=== PATIENT | female | born 1935 | race Caucasian/White ===

== ENCOUNTER 2021-05-18 22:16 | Inpatient (IN) | payer MEDICARE ==
[~2021-05-18] VITALS: Ht 170.2 cm; Wt 42.6 kg
--- NOTE | 2021-05-19 00:05 | NUR ---
pt repeatedly tries to get Addendum: 05/19/21 at 0005 by JANIYA pt repeatedly attempts to leave the room. currently has sitter at bedside.
--- NOTE | 2021-05-19 00:09 | NUR ---
Susanna (caregiver) phone# [phone]
[2021-05-19] MEDS ORDERED: FURO20TA4 PO (00:10)
[2021-05-19] MEDS ORDERED: DONE10TA44 PO (00:11)
[2021-05-19] MEDS ORDERED: LOSA100T31 PO (00:13)
[2021-05-19] MEDS ORDERED: POTA10CA43 PO (00:15)
[2021-05-19] MEDS ORDERED: VIACTIV SOFT C1 EACH PO (00:15)
[2021-05-19] MEDS ORDERED: METO-356 PO (00:15)
[2021-05-19] MEDS ORDERED: OLANZAPINE 5 MG TABLET PO ONE (00:45)
[2021-05-19] MEDS ORDERED: LORAZEPAM 0.5 MG TABLET PO ONE (00:45)
--- NOTE | 2021-05-19 01:32 | NUR ---
Report given to Emely RN MHU.
[2021-05-19 01:50] VITALS: BP 164/100
[2021-05-19] MEDS ORDERED: MAGNESIUM HYDROXIDE 30 ML LIQUID UDC PO PRN (02:15)
[2021-05-19] MEDS ORDERED: ACETAMINOPHEN 325 MG TABLET PO PRN (02:15)
[2021-05-19] MEDS ORDERED: MAG HYDROX/AL HYDROX/SIMETH 30 ML LIQUID UDC PO PRN (02:15)
[2021-05-19] MEDS ORDERED: BLOOD SUGAR DIAGNOSTIC 1 EACH STRIP VI ONE (02:15)
[2021-05-19] MEDS: LORAZEPAM 0.5 MG TABLET PO PRN (04:01)
--- NOTE | 2021-05-19 05:17 | NUR ---
GPS ADMISSION NOTES: Admitted patient to U, via gurney from ER with ER Nurse and pradeep, patient on 5150 d/t gravely disable and danger to other. As per report patient living with a caregiver at home, patient is said to be aggressive towards the caregiver, wanders around, and getting worst Addendum: 05/19/21 at 0532 by ANGEL PARSONS RN GPS ADMISSION NOTE continued: recently, Patient is diagnose with dementia. Face to face evaluation done, Patient A&0x1, appears confuse and unable to answer initial assessments questions. Patient looking for her "DOG". Patient oriented in the unit, but unable to comprehend d/t cognitive impairment. Patient skin intact. No respiratory distress noted. Patient transfer to bed, safety strategies left in place. Patient rights handbook with advisement given to patient.
--- NOTE | 2021-05-19 05:33 | NUR ---
GPS NOTES: THOUGHT DISORDER: @0230A patient got out of bed, patient made a statement "that door, there's a lot of them in there", oriented patient to reality and re-assure patient to be in a safe environment, patient starts to wander out in the hallway, going in and out of the room, patient looking for her "dog", redirect patient to a safe space, patient tends to be aggressive when being redirected and unable to follow commands and continue to wander around. Safety strategies left in palace. Stand by assistance. Ativan given as ordered d/t anxiety and restlessness. offered snack to patient w/c she complied. @330A ativan effective as patient appears to calm and sleeping at this time.
[2021-05-19 07:33] VITALS: BP 150/64
[2021-05-19] MEDS: OLANZAPINE 2.5 MG TABLET PO SCH ×2 (12:45→17:22)
[2021-05-19 13:00] VITALS: BP 138/81
[2021-05-19 20:00] VITALS: BP 140/76
[2021-05-19] MEDS: DIVALPROEX SPRINKLE 125 MG CAP.SPRINK PO SCH (20:19)
[2021-05-19] MEDS: TEMAZEPAM 7.5 MG CAPSULE PO PRN (21:52)
--- NOTE | 2021-05-19 22:42 | NUR ---
Patient received in macrello-chair next to nursing station. Patient A/O x1.Patient requires constant redirection, complaint with medication with prompting rendered. Patient in no apparent distress will continue to monitor.Patient confused, disoriented with poor insight. Patient can be combative during care. Safety precautions in place.
[2021-05-20 07:30] VITALS: BP 166/61
[2021-05-20 08:11] LABS: BILIRUBIN,TOTAL 0.6 mg/dL (0.2-1.0); CREATININE 0.8 mg/dL (0.6-1.3); MAGNESIUM 2.5 mg/dL (1.8-2.4); POTASSIUM 4.9 mmol/L (3.5-5.1); TOTAL PROTEIN, SERUM 7.4 g/dL (6.4-8.2)
[2021-05-20 08:23] LABS: HEMATOCRIT 44.8 % (31.2-41.9); MEAN CORPUSCULAR HEMOGLOBIN 32.6 uug (24.7-32.8); MEAN CORPUSCULAR VOLUME 96.8 fL (75.5-95.3); PLATELET COUNT (AUTO) 254 K/uL (179-408)
[2021-05-20] MEDS ORDERED: VIT K PO SCH (09:00)
[2021-05-20] MEDS ORDERED: CA CARBONATE PO SCH (09:00)
[2021-05-20] MEDS ORDERED: [UNRECOGNIZED DRUG - OTHER] PO SCH (09:00)
[2021-05-20] MEDS ORDERED: VITAMIN D3 PO SCH (09:00)
[2021-05-20] MEDS ORDERED: Medication Not On Formulary EA (Losartan Potassium 1 TAB) PO SCH (09:00)
[2021-05-20 09:11] LABS: THYROID STIMULATING HORMONE 1.381 mIU/mL (0.358-3.740)
[2021-05-20] MEDS: DIVALPROEX SPRINKLE 125 MG CAP.SPRINK PO SCH ×3 (09:22→20:19)
[2021-05-20] MEDS: OLANZAPINE 2.5 MG TABLET PO SCH ×2 (09:22→16:19)
[2021-05-20] MEDS: FUROSEMIDE 20 MG TABLET PO SCH (09:23)
[2021-05-20] MEDS: CALCIUM CARB/VITAMIN D 600-400 MG TABLET PO SCH (09:23)
[2021-05-20] MEDS: METOPROLOL SUCCINATE XL 25 MG TAB.SR.24H PO SCH (09:23)
[2021-05-20] MEDS: POTASSIUM CHLORIDE 10 MEQ TAB.PRT.SR PO SCH (09:23)
[2021-05-20] MEDS: LOSARTAN POTASSIUM 50 MG TABLET PO SCH (09:24)
--- NOTE | 2021-05-20 10:40 | NUR ---
KIKE Initial Discharge Note: Pt is admitted to [facility] from [facility] on a 5150 hold for a danger to others and gravely disabled adult. Pt currently resides at [address] [place] [address] [place] [address]. KIKE contacted pt's daughter, Angelique [phone] and left a voicemail for a call back to discuss discharge plan. KIKE will continue to work with pt, family and MD to ensure a safe and proper discharge plan.
--- NOTE | 2021-05-20 10:41 | NUR ---
KIKE Admit Source: Pt is admitted to [facility] from [facility] on a 5150 hold for a danger to others and gravely disabled adult. Pt currently resides at [address] [place] [address] [place] [address]. KIKE contacted pt's daughter, Angelique [phone] and left a voicemail for a call back to discuss discharge plan. KKIE will continue to work with pt, family and MD to ensure a safe and proper discharge plan.
--- NOTE | 2021-05-20 10:43 | NUR ---
Firearms Report: Silverlight Developer completed and submitted a [employer] firearms report for 5150 a danger to others and grave disability certifications. A copy of report has been placed in patient chart.
[2021-05-20] MEDS: ENSURE ENLIVE (VAN) 240 ML LIQUID PO SCH ×2 (13:00→16:25)
[2021-05-20 15:41] VITALS: BP 109/62
[2021-05-20 20:03] VITALS: BP 129/67
[2021-05-20 20:04] VITALS: BP 129/67
[2021-05-20] MEDS: LORAZEPAM 0.5 MG TABLET PO PRN (20:20)
[2021-05-20] MEDS: TEMAZEPAM 7.5 MG CAPSULE PO PRN (22:57)
[2021-05-21 07:30] VITALS: BP 131/82
[2021-05-21] MEDS: FUROSEMIDE 20 MG TABLET PO SCH (09:56)
[2021-05-21] MEDS: DIVALPROEX SPRINKLE 125 MG CAP.SPRINK PO SCH ×3 (09:56→20:23)
[2021-05-21] MEDS: POTASSIUM CHLORIDE 10 MEQ TAB.PRT.SR PO SCH (09:56)
[2021-05-21] MEDS: LOSARTAN POTASSIUM 50 MG TABLET PO SCH (09:58)
[2021-05-21] MEDS: CALCIUM CARB/VITAMIN D 600-400 MG TABLET PO SCH (09:58)
[2021-05-21] MEDS: ENSURE ENLIVE (VAN) 240 ML LIQUID PO SCH ×3 (09:59→17:59)
[2021-05-21] MEDS: OLANZAPINE 2.5 MG TABLET PO SCH ×2 (09:59→17:59)
[2021-05-21] MEDS: METOPROLOL SUCCINATE XL 25 MG TAB.SR.24H PO SCH (10:02)
--- NOTE | 2021-05-21 14:47 | NUR ---
Gps/Applications Intern- Stayed up in her marcello-chair by the Nurses station , encouraged fluids, poor intake , encouraged to eat . Confused, difficulty with her processing , talking incoherently .Safety continue to emphasized.
[2021-05-21] MEDS: LORAZEPAM 0.5 MG TABLET PO PRN ×2 (15:55→20:23)
[2021-05-21 16:00] VITALS: BP 129/104
[2021-05-21 20:00] VITALS: BP 123/72
[2021-05-21] MEDS: TEMAZEPAM 7.5 MG CAPSULE PO PRN (22:22)
--- NOTE | 2021-05-22 06:30 | NUR ---
Patient sleep 1.45 hours last night. The patient was very confused and unable to engage in any meaningful conversation. Fluids and food encouraged with max assist. Safety Stratiges are in place. No acute distress noted at this time.
[2021-05-22 08:32] VITALS: BP 121/67
[2021-05-22] MEDS: OLANZAPINE 2.5 MG TABLET PO SCH (09:35)
[2021-05-22] MEDS: POTASSIUM CHLORIDE 10 MEQ TAB.PRT.SR PO SCH (09:36)
[2021-05-22] MEDS: METOPROLOL SUCCINATE XL 25 MG TAB.SR.24H PO SCH (09:36)
[2021-05-22] MEDS: CALCIUM CARB/VITAMIN D 600-400 MG TABLET PO SCH (09:37)
[2021-05-22] MEDS: LOSARTAN POTASSIUM 50 MG TABLET PO SCH (09:37)
[2021-05-22] MEDS: FUROSEMIDE 20 MG TABLET PO SCH (09:37)
[2021-05-22] MEDS: DIVALPROEX SPRINKLE 125 MG CAP.SPRINK PO SCH ×3 (09:37→23:06)
[2021-05-22] MEDS: ENSURE ENLIVE (VAN) 240 ML LIQUID PO SCH ×3 (10:03→17:00)
[2021-05-22 15:56] VITALS: BP 152/73
--- NOTE | 2021-05-22 16:00 | NUR ---
Gps/Food Cooking Machine Operator- Stayed in bed during the day, needing assist with her meals, not initiating to feed self , plays with her food.
[2021-05-22 20:08] VITALS: BP 135/70
[2021-05-22] MEDS: OLANZAPINE 5 MG TABLET PO SCH (21:00)
[2021-05-22] MEDS: TEMAZEPAM 7.5 MG CAPSULE PO PRN (23:06)
[2021-05-22] MEDS: LORAZEPAM 0.5 MG TABLET PO PRN (23:06)
[2021-05-23 07:26] LABS: HEMATOCRIT 44.2 % (31.2-41.9); MEAN CORPUSCULAR HEMOGLOBIN 32.3 uug (24.7-32.8); MEAN CORPUSCULAR VOLUME 96.3 fL (75.5-95.3); PLATELET COUNT (AUTO) 199 K/uL (179-408)
[2021-05-23 07:30] VITALS: BP 128/72
[2021-05-23 07:44] LABS: BILIRUBIN,TOTAL 1.4 mg/dL (0.2-1.0); CREATININE 0.7 mg/dL (0.6-1.3); POTASSIUM 4.4 mmol/L (3.5-5.1); TOTAL PROTEIN, SERUM 6.9 g/dL (6.4-8.2)
[2021-05-23] MEDS: LORAZEPAM 0.5 MG TABLET PO PRN (08:33)
[2021-05-23] MEDS: FUROSEMIDE 20 MG TABLET PO SCH (08:50)
[2021-05-23] MEDS: OLANZAPINE 2.5 MG TABLET PO SCH (08:50)
[2021-05-23] MEDS: DIVALPROEX SPRINKLE 125 MG CAP.SPRINK PO SCH ×2 (08:50→13:47)
[2021-05-23] MEDS: POTASSIUM CHLORIDE 10 MEQ TAB.PRT.SR PO SCH (08:50)
[2021-05-23] MEDS: LOSARTAN POTASSIUM 50 MG TABLET PO SCH (08:51)
[2021-05-23] MEDS: METOPROLOL SUCCINATE XL 25 MG TAB.SR.24H PO SCH (08:51)
[2021-05-23] MEDS: ENSURE ENLIVE (VAN) 240 ML LIQUID PO SCH ×3 (08:52→16:24)
[2021-05-23] MEDS: CALCIUM CARB/VITAMIN D 600-400 MG TABLET PO SCH (08:54)
[2021-05-23 11:24] LABS: NEUTROPHILS % (MANUAL) 0 % (42-75)
[2021-05-23 15:09] VITALS: BP 123/73
--- NOTE | 2021-05-23 17:35 | NUR ---
patient stay in bed isolative withdrawn no interaction with staffs and peers, refused to attends group activity,continue with poor po intake, encourage patient to take ensure supplement .taking incoherently poor insight will continue close monitoring.
[2021-05-23 19:57] VITALS: BP 118/72
[2021-05-23] MEDS: OLANZAPINE 5 MG TABLET PO SCH (20:13)
[2021-05-24 07:30] VITALS: BP 111/92
[2021-05-24] MEDS: DIVALPROEX SPRINKLE 125 MG CAP.SPRINK PO SCH ×2 (09:01→12:33)
[2021-05-24] MEDS: OLANZAPINE 2.5 MG TABLET PO SCH (09:01)
[2021-05-24] MEDS: LORAZEPAM 0.5 MG TABLET PO PRN (09:01)
[2021-05-24] MEDS: FUROSEMIDE 20 MG TABLET PO SCH (09:01)
[2021-05-24] MEDS: POTASSIUM CHLORIDE 10 MEQ TAB.PRT.SR PO SCH (09:02)
[2021-05-24] MEDS: LOSARTAN POTASSIUM 50 MG TABLET PO SCH (09:02)
[2021-05-24] MEDS: ENSURE ENLIVE (VAN) 240 ML LIQUID PO SCH ×3 (09:02→16:47)
[2021-05-24] MEDS: CALCIUM CARB/VITAMIN D 600-400 MG TABLET PO SCH (09:03)
[2021-05-24] MEDS: METOPROLOL SUCCINATE XL 25 MG TAB.SR.24H PO SCH (09:07)
--- NOTE | 2021-05-24 10:12 | NUR ---
SW Discharge Update: KIKE contacted, pt's egg caser for the trustee, Angelique [phone] who stated that she is working on locating transportation for the pt's return home upon discharge with her 18/09 full-time training development specialist. Angelique stated pt does not have any family contact and she will continue to be the point of contact.
[2021-05-24 15:07] VITALS: BP 93/59
--- NOTE | 2021-05-24 15:07 | NUR ---
GPS: Nursing Notes: Destructive Behavior To Others: Patient is awake and responding to her name, resistant with nursing care, unsteady gait, gets easily irritable when redirected, refusing her medications at 1 PM, disoriented, impaired judgment, trying to strike out to staff at times when assisting with her diaper change, unable to formulate a viable plan for self care, angry affect, continue to monitor for safety, continue with treatment plan.
[2021-05-24 20:00] VITALS: BP 125/91
[2021-05-24] MEDS: OLANZAPINE 5 MG TABLET PO SCH (20:42)
[2021-05-25 07:30] VITALS: BP 91/59
[2021-05-25] MEDS: METOPROLOL SUCCINATE XL 25 MG TAB.SR.24H PO SCH (09:00)
[2021-05-25] MEDS: LOSARTAN POTASSIUM 50 MG TABLET PO SCH (09:00)
[2021-05-25] MEDS: DIVALPROEX SPRINKLE 125 MG CAP.SPRINK PO SCH ×2 (09:18→13:15)
[2021-05-25] MEDS: OLANZAPINE 2.5 MG TABLET PO SCH (09:18)
[2021-05-25] MEDS: POTASSIUM CHLORIDE 10 MEQ TAB.PRT.SR PO SCH (09:18)
[2021-05-25] MEDS: FUROSEMIDE 20 MG TABLET PO SCH (09:18)
[2021-05-25] MEDS: CALCIUM CARB/VITAMIN D 600-400 MG TABLET PO SCH (09:19)
[2021-05-25] MEDS: ENSURE ENLIVE (VAN) 240 ML LIQUID PO SCH ×3 (09:21→20:09)
--- NOTE | 2021-05-25 10:11 | NUR ---
GPS: PT IS ON BRITTANI-CHAIR FOR SAFETY. BLANK STARES AND NO AGITATION NOTED AT THIS TIME. UNABLE TO MAKE NEEDS KNOWN. ENCOURAGED TO PARTICIPATE WITH GROUP THERAPY. COMPLIANT WITH MEDICATIONS.
[2021-05-25 16:00] VITALS: BP 134/77
[2021-05-25 20:00] VITALS: BP 129/84
[2021-05-25] MEDS: OLANZAPINE 5 MG TABLET PO SCH (23:06)
[2021-05-26] MEDS: TEMAZEPAM 7.5 MG CAPSULE PO PRN ×2 (01:04→21:47)
--- NOTE | 2021-05-26 05:45 | NUR ---
Received to care, lying in bed, restless, at times. PRN Restoril given at 0101. As of now, she is still sleeping intermittently. No distress, noted.
[2021-05-26 07:23] LABS: BILIRUBIN,TOTAL 0.8 mg/dL (0.2-1.0); CREATININE 0.7 mg/dL (0.6-1.3); TOTAL PROTEIN, SERUM 7.5 g/dL (6.4-8.2)
[2021-05-26 07:30] VITALS: BP 144/81
[2021-05-26] MEDS: ENSURE ENLIVE (VAN) 240 ML LIQUID PO SCH ×3 (09:00→17:00)
[2021-05-26] MEDS: CALCIUM CARB/VITAMIN D 600-400 MG TABLET PO SCH (09:00)
[2021-05-26] MEDS: LOSARTAN POTASSIUM 50 MG TABLET PO SCH (10:18)
[2021-05-26] MEDS: OLANZAPINE 2.5 MG TABLET PO SCH (10:18)
[2021-05-26] MEDS: METOPROLOL SUCCINATE XL 25 MG TAB.SR.24H PO SCH (10:19)
[2021-05-26] MEDS: POTASSIUM CHLORIDE 10 MEQ TAB.PRT.SR PO SCH (10:20)
[2021-05-26] MEDS: FUROSEMIDE 20 MG TABLET PO SCH (10:20)
[2021-05-26] MEDS: DIVALPROEX SPRINKLE 125 MG CAP.SPRINK PO SCH ×2 (11:14→13:32)
--- NOTE | 2021-05-26 15:46 | NUR ---
Gps/Gi Technician- Talking out loud in Comoran , when asked if she needs anything, in Comoran , answered back in Kyrgyz claimed "i dont understand yo". Karli, stayed in her room most of the morning encouraged to attend her group tx, refusing to eat, refusing po meds. .Yells at the staff when they come to talk to her. Addendum: 05/26/21 at 1550 by KARLA SINGH LVN Error, charted on wrong patient. /
--- NOTE | 2021-05-26 15:50 | NUR ---
Gps/Sales Support Engineer- Remains up in her recliner chair for safety, monitoring her needs. Assisted with her meals no initiating to feed self.
[2021-05-26 16:00] VITALS: BP 135/94
[2021-05-26 20:00] VITALS: BP 98/60
[2021-05-26] MEDS: OLANZAPINE 5 MG TABLET PO SCH (20:13)
--- NOTE | 2021-05-27 05:58 | NUR ---
Received to care, up in marcello chair, calm and cooperative. Bedtime medication was given. PRN Restoril was given at 2147, and she was assisted to bed, and has slept well all night. No distress, noted.
[2021-05-27 07:30] VITALS: BP 90/69
[2021-05-27] MEDS: METOPROLOL SUCCINATE XL 25 MG TAB.SR.24H PO SCH (09:00)
[2021-05-27] MEDS: FUROSEMIDE 20 MG TABLET PO SCH (09:00)
[2021-05-27] MEDS: CALCIUM CARB/VITAMIN D 600-400 MG TABLET PO SCH (09:00)
[2021-05-27] MEDS: LOSARTAN POTASSIUM 50 MG TABLET PO SCH (09:00)
--- NOTE | 2021-05-27 09:13 | NUR ---
Gps/Cashiers Bussers Food Runners - OOB to chair with P.T. assisting , sleepy, refusing to eat breakfast, will re-offer breakfast when fully awake.Monitor safety
[2021-05-27] MEDS: ENSURE ENLIVE (VAN) 240 ML LIQUID PO SCH ×3 (11:00→17:13)
[2021-05-27] MEDS: POTASSIUM CHLORIDE 10 MEQ TAB.PRT.SR PO SCH (11:03)
[2021-05-27] MEDS: OLANZAPINE 2.5 MG TABLET PO SCH (11:03)
[2021-05-27] MEDS: DIVALPROEX SPRINKLE 125 MG CAP.SPRINK PO SCH ×2 (11:12→13:08)
--- NOTE | 2021-05-27 11:35 | NUR ---
Gps/Ornamental Metalwork Designer- Kelly Guzmán BUSINESS EDITOR in to see patient, was informed of low blood pressure , orders received parameters for Cozaar and Toprol XL
--- NOTE | 2021-05-27 16:21 | NUR ---
KIKE Discharge Update: Pt will be discharged to Home on 05/30/21 to [address] [facility], [address] via vehicle transportation by pts motor adjuster, Trey ([phone]) at 11AM. KIKE spoke with Trey who states they are ready to accept the patient back home today. Pt is aware and agreeable with discharge plans. Pts immigration case worker, Angelique is also aware and agreeable with the discharge plan. Angeilque confirmed that Trey is cleared to provide transportation and sign for the patients discharge paperwork. Angelique stated pt does not have any family contact.
[2021-05-27 17:19] VITALS: BP 136/78
[2021-05-27 20:16] VITALS: BP 131/86
[2021-05-27] MEDS: OLANZAPINE 5 MG TABLET PO SCH (20:59)
[2021-05-27] MEDS: TEMAZEPAM 7.5 MG CAPSULE PO PRN (22:01)
--- NOTE | 2021-05-28 04:39 | NUR ---
Received to care, up in marcello chair, calm and cooperative. This physician underwriter fed her a carton of apple sauce, and then fed her a carton of milk.Bedtime medication was given. PRN Restoril was then given, and she was assisted to bed, and has slept well all night. No distress, noted.
[2021-05-28 08:06] VITALS: BP 143/78
[2021-05-28] MEDS: OLANZAPINE 2.5 MG TABLET PO SCH (09:33)
[2021-05-28] MEDS: CALCIUM CARB/VITAMIN D 600-400 MG TABLET PO SCH (09:33)
[2021-05-28] MEDS: DIVALPROEX SPRINKLE 125 MG CAP.SPRINK PO SCH ×2 (09:33→12:12)
[2021-05-28] MEDS: ENSURE ENLIVE (VAN) 240 ML LIQUID PO SCH ×3 (09:34→16:59)
[2021-05-28] MEDS: METOPROLOL SUCCINATE XL 25 MG TAB.SR.24H PO SCH (09:34)
[2021-05-28] MEDS: LOSARTAN POTASSIUM 25 MG TABLET PO SCH (09:34)
[2021-05-28] MEDS: FUROSEMIDE 20 MG TABLET PO SCH (09:34)
[2021-05-28] MEDS: POTASSIUM CHLORIDE 10 MEQ TAB.PRT.SR PO SCH (09:35)
[2021-05-28 16:20] VITALS: BP 90/70
[2021-05-28] MEDS: OLANZAPINE 5 MG TABLET PO SCH (20:08)
--- NOTE | 2021-05-28 20:30 | NUR ---
PATIENT SEATED IN RECLINING CHAIR, WITH ELEVATE HR 176, BUT BP WNL, GIVEN PATIENT WATER, JUICE AND ENSURE TO PROMOTE HYDRATION, NO S/S OF DISTRESS, CONT TO MONITOR.
--- NOTE | 2021-05-28 22:00 | NUR ---
PATIENT AWAKE, RECHECK HR 95 AT THIS TIME, CONTINUE TO ENCOURAGE TO DRINK, CONT TO MONITOR.
--- NOTE | 2021-05-29 06:22 | NUR ---
PATIENT AWAKE BUT WITH CONFUSION, SLEPT FOR 7.15, PATIENT HAS NO S/S OF PAIN, REQUIRES TOTAL ASSIST WITH ADL'S URINATE A LOT WITH YELLOW COLOR URINE, HAD BM ALSO, RENDERED GOOD JIMENA CARE.
[2021-05-29 07:45] VITALS: BP 113/61
[2021-05-29] MEDS: POTASSIUM CHLORIDE 10 MEQ TAB.PRT.SR PO SCH (09:49)
[2021-05-29] MEDS: DIVALPROEX SPRINKLE 125 MG CAP.SPRINK PO SCH ×2 (09:49→12:43)
[2021-05-29] MEDS: OLANZAPINE 2.5 MG TABLET PO SCH (09:49)
[2021-05-29] MEDS: ENSURE ENLIVE (VAN) 240 ML LIQUID PO SCH ×3 (09:50→17:12)
[2021-05-29] MEDS: LOSARTAN POTASSIUM 25 MG TABLET PO SCH (09:50)
[2021-05-29] MEDS: CALCIUM CARB/VITAMIN D 600-400 MG TABLET PO SCH (09:55)
[2021-05-29] MEDS: METOPROLOL SUCCINATE XL 25 MG TAB.SR.24H PO SCH (09:56)
[2021-05-29] MEDS: FUROSEMIDE 20 MG TABLET PO SCH (09:57)
[2021-05-29 16:36] VITALS: BP 105/86
--- NOTE | 2021-05-29 18:11 | NUR ---
Patient awake episodes of confusion. No resp distress noted. Compliant with prescribed medications. Assisted with ADLs. Kept comfortable.
[2021-05-29 20:10] VITALS: BP_SYST 137; BP_SYST 90; BP_DIAS 55; BP_DIAS 77
[2021-05-29] MEDS: OLANZAPINE 5 MG TABLET PO SCH (20:26)
[2021-05-29] MEDS: TEMAZEPAM 7.5 MG CAPSULE PO PRN (21:37)
[2021-05-30] MEDS: LORAZEPAM 0.5 MG TABLET PO PRN (00:08)
[2021-05-30 07:49] VITALS: BP 116/62
[2021-05-30] MEDS: CALCIUM CARB/VITAMIN D 600-400 MG TABLET PO SCH (08:39)
[2021-05-30] MEDS: OLANZAPINE 2.5 MG TABLET PO SCH (08:39)
[2021-05-30] MEDS: POTASSIUM CHLORIDE 10 MEQ TAB.PRT.SR PO SCH (08:39)
[2021-05-30 08:40] VITALS: BP 116/62
[2021-05-30] MEDS: METOPROLOL SUCCINATE XL 25 MG TAB.SR.24H PO SCH (08:40)
[2021-05-30] MEDS: LOSARTAN POTASSIUM 25 MG TABLET PO SCH (08:40)
[2021-05-30] MEDS: FUROSEMIDE 20 MG TABLET PO SCH (08:40)
[2021-05-30] MEDS: DIVALPROEX SPRINKLE 125 MG CAP.SPRINK PO SCH (08:43)
[2021-05-30] MEDS: ENSURE ENLIVE (VAN) 240 ML LIQUID PO SCH (08:43)
--- NOTE | 2021-05-30 09:05 | NUR ---
KIKE Discharge Note: Pt will be discharged to [address] [facility], [address] via vehicle transportation by pts shore worker, Susanna Ramos ([phone]) at 11AM. KIKE spoke with pts case finisher, Angelique who confirmed that Susanna is ready to accept the patient back home today. Pt is aware and agreeable with discharge plans. Pts case finisher, Angelique is also aware and agreeable with the discharge plan. Angelique confirmed that Trey is cleared to provide transportation and sign for the patients discharge paperwork. Angelique stated pt does not have any family contact. Pt is alert and oriented x1(name), is unable to plan for self-care at this time; however, is willing to accept care at her home with a full-time shore worker. Pt denies any suicidal or homicidal ideation. Pt will follow-up at the facility with Psychiatrist and Change Management. Pt presents with calm mood and congruent affect. PHARMACY: [facility] Pharmacy: [phone]) [address] [facility].
[2021-05-30] MEDS ORDERED: LOSA25TA27 PO (10:23)
--- NOTE | 2021-05-30 11:30 | NUR ---
GPS: Nursing Notes: Discharge Notes: Patient is awake and responding to her name, disoriented, impaired judgment, compliant with her medications, cooperative with nursing care, FWW given to caregiver per request by director social welfare, denies SI/HI, denies AH/VH, denies pain or discomfort, denies SOB, discharge home with patient's caregiver Victorina Yang at [address] [place] [address]. Patient's caregiver - Trey transported her home via private vehicle, instructions and discharge package given to caregiver - Trey, took all her belongings with her, Dr. Timmons called pharmacy for her medications and Kelly Guzmán NP also called [facility] pharmacy for patient's medications.
--- NOTE | 2021-05-30 12:18 | NUR ---
KIKE Family Contact: Per Angelique ([phone]) and equipment detailer Susanna's ([phone]), request, SW provided a walker given by shobonier for Susanna to take home for pt's continuation of care. Angelique and Susanna were notified by u staff and PT that pt requires assistance when walking. Angelique and Susanna are aware of pt's current status.
[2021-05-30] MEDS ORDERED: DIVALPROEX SPRINKLE 125 MG CAP.SPRINK PO SCH (17:00)
== END 2021-05-30 11:30 | disposition home or self-care (01) | DRG 885 ==
LOC: ER 22:22 → GPS 23:59
PROVIDERS: ADMIT Psychiatry & Neurology Psychosomatic Medicine; ATTEND Internal Medicine
DX: F29 Unspecified psychosis not due to a substance or known physiological condition (principal); I11.0 Hypertensive heart disease with heart failure; E46 Unspecified protein-calorie malnutrition; Z68.1 Body mass index [BMI] 19.9 or less, adult; F03.90 Unspecified dementia, unspecified severity, without behavioral disturbance, psychotic disturbance, mood disturbance, and anxiety; I50.9 Heart failure, unspecified; M19.90 Unspecified osteoarthritis, unspecified site; R62.7 Adult failure to thrive; M81.0 Age-related osteoporosis without current pathological fracture; Z79.899 Other long term (current) drug therapy; R26.89 Other abnormalities of gait and mobility
CPT/HCPCS: 36415; 70030-TC; 80164; 83735; 84100; 84443; 85025; 97161; A4663